=== PATIENT | male | born 1975 | race Caucasian/White ===

== ENCOUNTER 2021-01-15 14:50 | Outpatient (CLI) | payer OTHER, SELFPAY | END 2021-01-15 14:51 | disposition home or self-care (01) | LOC: ANHAUDIO 14:52 | PROVIDERS: PCP Nurse Practitioner Family; Visit Provider Nurse Practitioner Family | DX: H93.13 Tinnitus, bilateral (principal) | CPT/HCPCS: 92557; 92567 ==